=== PATIENT | female | born 1945 | race Caucasian/White ===

== ENCOUNTER → 2020-02-20 09:17 | Outpatient (BNVA) | payer MEDICARE, SELFPAY | PROVIDERS: PCP Internal Medicine; Referring Provider Internal Medicine; Visit Provider Orthopaedic Surgery | DX: M17.12 Unilateral primary osteoarthritis, left knee (principal); E78.5 Hyperlipidemia, unspecified; A69.20 Lyme disease, unspecified; Z88.8 Allergy status to other drugs, medicaments and biological substances | CPT/HCPCS: 99212 ==

== ENCOUNTER → 2020-06-18 09:40 | Outpatient (BNVA) | payer MEDICARE, SELFPAY | PROVIDERS: PCP Internal Medicine; Visit Provider Orthopaedic Surgery ==

== ENCOUNTER → 2020-07-17 13:04 | Outpatient (BNVA) | payer MEDICARE, SELFPAY | PROVIDERS: PCP Internal Medicine; Visit Provider Physician Assistant | DX: M17.12 Unilateral primary osteoarthritis, left knee (principal) | CPT/HCPCS: 99212 ==

== ENCOUNTER 2020-07-22 07:42 | Inpatient (IN) | payer MEDICARE, SELFPAY ==
--- NOTE | 2020-06-18 11:03 | ECG_ITS ---
Test Reason : PREOP Blood Pressure : / mmHG Vent. Rate : 099 BPM Atrial Rate : 099 BPM P-R Int : 144 ms QRS Dur : 080 ms QT Int : 322 ms P-R-T Axes : 063 -15 044 degrees QTc Int : 413 ms Normal sinus rhythm Normal ECG No previous ECGs available Referred By: Dylan Velazquez Electronically Signed By:ROSITA ENG
[2020-06-18 12:05] LABS: MANUAL DIFF FLAG NO
[2020-06-18 12:15] LABS: Basophils Percent Auto 0.2 % (0-2); Eosinophils Absolute Auto 0.1 X10*3/uL (0.0-0.4); Eosinophils Percent Auto 1.6 % (0-4); Hematocrit 38.8 % (37-47); Hemoglobin 12.7 g/dl (12.0-16.0); Imm Gran Abs Auto 0.02 X10*3/uL (0.00-0.03); Imm Gran Pct Auto 0.3 % (0.0-0.4); Lymphocytes Absolute Auto 1.1 X10*3/uL (1.2-4.9); Mean Corpuscular HGB Conc 32.7 g/dl (31.0-35.0); Mean Corpuscular Hemoglobin 28.9 pg (27.0-33.0); Mean Corpuscular Volume 88.4 fL (80-98); Mean Platelet Volume 12.3 fL (9.4-12.3); Monocytes Absolute Auto 0.5 X10*3/uL (0.1-1.2); Monocytes Percent Auto 8.5 % (2-11); Neutrophils Absolute Auto 4.4 X10*3/uL (2.0-8.3); Neutrophils Percent Auto 71.4 % (45-73); Platelet Count 144 X10*3/uL (160-400); Red Blood Count 4.39 X10*6/uL (4.20-5.50); Red Cell Distribution Width 14.2 % (11.0-16.0); White Blood Count 6.1 X10*3/uL (4.8-10.8)
[2020-06-18 12:29] LABS: Estimated Average Glucose 157 mg/dL; Hemoglobin A1c % 7.1 %
[2020-06-18 12:34] LABS: Anion Gap 14 (12-20); Blood Urea Nitrogen 23 mg/dL (9-16); Calcium 9.8 mg/dL (8.4-10.2); Carbon Dioxide 28 mmol/L (22-29); Chloride 103 mmol/L (96-108); Estimated Glomerular Filt Rate 58; Glucose Random 155 mg/dL (60-115); Magnesium 1.7 mg/dL (1.6-2.6); Potassium 3.8 mmol/L (3.3-5.1); Sodium 141 mmol/L (135-145)
[2020-07-15 11:53] VITALS: BP 181/76; PULSE 98; RESP 16; O2SAT 100; BMI 22.6
--- NOTE | 2020-07-15 12:11 | HO.ANESPROP2 ---
Documented by User: Leilani Cashney 07/19/20 07:47 HPI - Anesthesia Eval Consult details Narrative: 74yo for Left TKA Chronic hypomag r/t Gitelman syndrome - renal recommends recheck DOS, usually replaced IV if <1.6. Last Mag 2.0 on 07/15 PCP Cleared Renal cleared BP up at PAT. Pt states nerves/white coat syndrome/pain PMFSH Active Problems Active Problems: All Active Problems (Updated 07/12/20 @ 10:29 by Ligia Perdue) Hypomagnesemia (Acute) Past Medical History Medical History Cyst of pancreas Diabetes mellitus Gitelman syndrome Hyperlipidemia Hypertension Hypokalemia Hypomagnesemia Lyme disease Primary osteoarthritis of left knee Steatosis of liver Family History Family history of problems with anesthesia: No Surgical History Surgical History History of bilateral cataract extraction History of hysterectomy Hx of bilateral breast biopsy History of Problems with Anesthesia: No Social History Social History Are you a primary transitional care liaison to a significant other at home: No Do you presently have visiting nurse or other home services: No Smoking Status: Never smoker Use of substances other than those prescribed or required for medical reasons: No Have you been hit, kicked, punched, or otherwise hurt by someone within the past year? If so, by whom?: No Advance Directives: No Advance Directives Information Provided: No Advance Directives on File: No Recently lost weight without trying: No Current occupational status: retired Current occupation: Right Handed Narrative Narrative: No recent illness. Activity limited to pain. Meds Allergies Allergy/AdvReac Type Severity Reaction Status Date / Time simvastatin Allergy Unknown GI upset Verified 07/12/20 09:39 rosuvastatin [From CRESTOR] AdvReac Unknown GI UPSET Verified 07/12/20 09:39 Home Medications Medication Instructions Recorded Confirmed Last Taken Type glipizide 10 mg tablet 10 mg PO DAILY 02/19/20 07/12/20 Unknown History pravastatin 40 mg tablet 40 mg PO DAILY 02/19/20 07/12/20 Unknown History amiloride 5 mg tablet 5 mg PO DAILY 06/18/20 07/15/20 Unknown History magnesium chloride 71.5 mg 143 mg PO BID tab 06/18/20 07/12/20 Unknown History (magnesium chloride) tablet,delayed release pioglitazone 30 mg tablet 30 mg PO DAILY 06/18/20 07/12/20 Unknown History potassium chloride 20 mEq 20 meq PO BID 06/18/20 07/22/20 07/22/20 07:00 History tablet,extended release acetaminophen [Tylenol Extra 1,000 mg PO BID 07/12/20 07/12/20 Unknown History Strength] aspirin [Aspir-81] 81 mg PO DAILY 07/12/20 07/12/20 06/23/20 History Exam Exam Date and Time: July 15, 2020 1211 Height,Weight and Vital Signs: Height 5 ft Weight 52.617 kg Last Vital Signs Pulse 98 07/15/20 11:53 Resp 16 07/15/20 11:53 BP 181/76 H 07/15/20 11:53 Pulse Ox 100 07/15/20 11:53 Pertinent Lab Results Pertinent Lab Results: Laboratory Tests 06/18/20 06/18/20 06/18/20 11:12 11:12 11:12 WBC 6.1 RBC 4.39 Hgb 12.7 Hct 38.8 MCV 88.4 MCH 28.9 MCHC 32.7 RDW 14.2 Plt Count 144 L MPV 12.3 Immature Gran % (Auto) 0.3 Neut % (Auto) 71.4 Lymph % (Auto) 18.0 L [place] % (Auto) 8.5 Eos % (Auto) 1.6 Baso % (Auto) 0.2 Lymph # (Auto) 1.1 L [place] # (Auto) 0.5 Eos # (Auto) 0.1 Baso # (Auto) 0.0 Abs Immat Gran (auto) 0.02 Absolute Neuts (auto) 4.4 Absolute Nucleated RBC 0.000 Nucleated RBC % (auto) 0.0 Sodium 141 Potassium 3.8 Chloride 103 Carbon Dioxide 28 Anion Gap 14 BUN 23 H Creatinine 0.95 Estim Creat Clear Calc TNP Estimated GFR 58 Random Glucose 155 H Estimat Average Glucose 157 Hemoglobin A1c % 7.1 Calcium 9.8 Magnesium 1.7 Narrative Narrative: EKG 06/2020 NSR @ 99 Airway Mallampati Class: II TM Dist: >3cm Neck ROM: Full Loose/Missing/Broken Teeth: No Heart: RRR Lungs: CTAB Assessment and Plan Assessment Anesthesia Assessment: Anesthesia Plan Discussed and PAT Visit Documented by User: Luis Corral MD 07/22/20 11:26 [facility] Past Medical History Medical History Cyst of pancreas Diabetes mellitus Gitelman syndrome Hyperlipidemia Hypertension Hypokalemia Hypomagnesemia Lyme disease Primary osteoarthritis of left knee Steatosis of liver Surgical History Surgical History History of bilateral cataract extraction History of hysterectomy Hx of bilateral breast biopsy Social History Social History Are you a primary transitional care liaison to a significant other at home: No Do you presently have visiting nurse or other home services: No Smoking Status: Never smoker Use of substances other than those prescribed or required for medical reasons: No Have you been hit, kicked, punched, or otherwise hurt by someone within the past year? If so, by whom?: No Advance Directives: No Advance Directives Information Provided: No Advance Directives on File: No Recently lost weight without trying: No Current occupational status: retired Current occupation: Right Handed Meds Allergies Allergy/AdvReac Type Severity Reaction Status Date / Time simvastatin Allergy Unknown GI upset Verified 07/12/20 09:39 rosuvastatin [From CRESTOR] AdvReac Unknown GI UPSET Verified 07/12/20 09:39 Home Medications Medication Instructions Recorded Confirmed Last Taken Type glipizide 10 mg tablet 10 mg PO DAILY 02/19/20 07/12/20 Unknown History pravastatin 40 mg tablet 40 mg PO DAILY 02/19/20 07/12/20 Unknown History amiloride 5 mg tablet 5 mg PO DAILY 06/18/20 07/15/20 Unknown History magnesium chloride 71.5 mg 143 mg PO BID tab 06/18/20 07/12/20 Unknown History (magnesium chloride) tablet,delayed release pioglitazone 30 mg tablet 30 mg PO DAILY 06/18/20 07/12/20 Unknown History potassium chloride 20 mEq 20 meq PO BID 06/18/20 07/22/20 07/22/20 07:00 History tablet,extended release acetaminophen [Tylenol Extra 1,000 mg PO BID 07/12/20 07/12/20 Unknown History Strength] aspirin [Aspir-81] 81 mg PO DAILY 07/12/20 07/12/20 06/23/20 History Assessment and Plan Assessment Anesthesia Assessment: Anesthesia Plan Discussed, PAT Visit and Chart Reviewed Final Anesthetic Review NPO: Yes ASA Class: II Final Preanesthetic Review: No Changes in Pt Med Stat, Meds/Allgs Chart Reviewed, Consent Obtained/Reviewed and Anes Risks/Benef Reviewed Patient Risk: Intermediate Procedure Risk: Intermediate Anesthetic Plan Anesthetic Plan: MAC:, Spinal and Regional Block Disposition: Standard PACU
[2020-07-15 14:00] LABS: Anion Gap 15 (12-20); Carbon Dioxide 26 mmol/L (22-29); Chloride 104 mmol/L (96-108); Potassium 4.8 mmol/L (3.3-5.1); Sodium 140 mmol/L (135-145)
[2020-07-16 10:15] LABS: MRSA Nasal PCR NEGATIVE (Negative); SA Nasal PCR NEGATIVE (Negative)
[2020-07-22] VITALS (18 sets, daily range): BP systolic 104–168; BP diastolic 38–64; PULSE 65–94; RESP 15–20; TEMP 36.3–37; O2SAT 94–100
--- NOTE | ~2020-07-22 | XR_ITS ---
EXAMINATION: XR KNEE, LEFT CLINICAL INFORMATION: Postop COMPARISON: Left knee x-rays May 02, 2019 TECHNIQUE: Two views of the left knee. FINDINGS: Patient is status post left total knee arthroplasty. Components are in expected orientation. No periprosthetic fracture identified. Expected subcutaneous emphysema noted. Skin aiyana present. XR/XR knee LT 2V IMPRESSION: Unremarkable left knee status post arthroplasty.
--- NOTE | 2020-07-22 07:34 | MHC.SHP ---
Pre-Procedural Eval Section A The patient is an INPATIENT: No Changes since office visit: No Cold of Flu in the past 2 weeks, No New Medical Problems, No Changes in Medication and No Patient answered all questions The History & Physical has been completed within 30 days and I have reviewed it.: Yes Section B Chief Complaint: left knee osteoarthritis Allergies: Allergies Allergy/AdvReac Type Severity Reaction Status Date / Time simvastatin Allergy Unknown GI upset Verified 07/12/20 09:39 rosuvastatin [From CRESTOR] AdvReac Unknown GI UPSET Verified 07/12/20 09:39 Plan I have reviewed the history and physical and performed a pertinent physical examination on my patient. No changes have occurred unless specified.
[2020-07-22] MEDS: Gabapentin 600 MG TABLET PO (08:07)
[2020-07-22 08:33] LABS: COVID-19 Test Negative (Negative); IDNOW Serial# 9DD0AD1C
[2020-07-22] MEDS: Lactated Ringers 1,000 ML 100 ML IVCONT ×3 (08:57→23:49)
[2020-07-22 09:00] LABS: Glucose, Whole Blood 148 mg/dL (60-115)
[2020-07-22 09:05] LABS: Anion Gap 13 (12-20); Carbon Dioxide 28 mmol/L (22-29); Chloride 103 mmol/L (96-108); Magnesium 1.8 mg/dL (1.6-2.6); Potassium 4.4 mmol/L (3.3-5.1); Sodium 140 mmol/L (135-145)
[2020-07-22] MEDS: Acetaminophen 325 MG TABLET 650 MG PO ×3 (12:45→23:48)
[2020-07-22] MEDS: oxyCODONE HCl Immed Release 5 MG TABLET PO (12:46)
[2020-07-22] MEDS: ceFAZolin Sodium/Dextrose,Iso 2 GM/50 ML PIGGYBACK IV (15:35)
[2020-07-22] MEDS: ondansetron HCL 4 MG/2 ML VIAL IVPUSH (16:12)
[2020-07-22] MEDS: HYDROmorphone HCl 0.5 MG/0.5 ML SYRINGE 0.25 MG IVPUSH ×2 (16:55→17:00)
--- NOTE | 2020-07-22 17:39 | PM.IMCN ---
History of Present Illness Data of Consult Service Date: 07/22/20 Requesting physician: Dylan Velazquez Primary Care Provider: Tank Sam MD HPI Reason for consult: lissette 74F admitted for elective left knee replacement. Patient states that she has been having progressive left knee pain from her osteoarthritis. Is been getting worse to the point where she cannot walk. She had seen Dr. Velazquez who recommended elective total knee replacement. This was performed today, 07/22/2020. Surgery was unremarkable. Patient is feeling well. Denies any chest pain, shortness of breath, fever, chills. Medicine consult requested for management of medical problems including diabetes, gitelmans Review of Systems Review of Systems: Constitutional: Denies fever, denies Chills Eyes: denies blurry vision ENT: denies sore throat CVS: denies chest pain Respiratory: Denies dyspnea GI: no abdominal pain : denies dysuria MSK: denies neck pain Skin: denies rash Neuro: denies specific motor weakness Psych: denies suicidal ideation Endocrine: denies heat/cold intoleratnce Hematologic: denies easy bleeding Allergy: denies hives [facility] Medical History Cyst of pancreas Diabetes mellitus Gitelman syndrome Hyperlipidemia Hypertension Hypokalemia Hypomagnesemia Lyme disease Primary osteoarthritis of left knee Steatosis of liver Family history: reviewed and not pertinent Surgical History History of bilateral cataract extraction History of hysterectomy Hx of bilateral breast biopsy Social History Are you a primary critical care physician to a significant other at home: No Do you presently have visiting nurse or other home services: No Smoking Status: Never smoker Use of substances other than those prescribed or required for medical reasons: No Have you been hit, kicked, punched, or otherwise hurt by someone within the past year? If so, by whom?: No Advance Directives: No Advance Directives Information Provided: No Advance Directives on File: No Recently lost weight without trying: No Current occupational status: retired Current occupation: Right Handed Meds Allergies Allergy/AdvReac Type Severity Reaction Status Date / Time simvastatin Allergy Unknown GI upset Verified 07/12/20 09:39 rosuvastatin [From CRESTOR] AdvReac Unknown GI UPSET Verified 07/12/20 09:39 Active Medications: Current Medications Generic Name Dose Route Start Last Admin Trade Name Fresylvester PRN Reason Stop Dose Admin Acetaminophen 650 mg 07/22/20 16:54 Acetaminophen 325 Mg Tablet PO Q6H [facility] Aspirin 325 mg 07/23/20 22:00 Aspirin 325 Mg Tablet PO BID [facility] Lactated Ringer's 1,000 mls @ 100 mls/hr 07/22/20 07:45 07/22/20 14:49 Lr IVCONT 100 mls/hr .Q10H [facility] Administration Insulin Human Lispro 0 unit 07/22/20 21:00 Insulin Lispro 100 Unit/Ml 3 Ml Vial SUBCUT QIDACHS [facility] Protocol Ketorolac Tromethamine 15 mg 07/22/20 17:03 Ketorolac Tromethamine 15 Mg/Ml Vial IVPUSH Q6H [facility] Morphine Sulfate 2 mg 07/22/20 17:03 Morphine Sulfate 2 Mg/Ml Cartridge IVPUSH Q2H PRN Pain, Severe (Pain Scale 7-10) Naloxone HCl 0.2 mg 07/22/20 17:03 Naloxone Hcl 0.4 Mg/Ml Vial IVPUSH Q2M PRN Excessive sedation or RR < 8 Non-Formulary Medication 5 mg 07/23/20 09:00 Amiloride PO DAILY [facility] Non-Formulary Medication 143 mg 07/22/20 21:00 Magnesium Chloride [Slow-Mag] PO BID [facility] Ondansetron HCl 4 mg 07/22/20 17:03 Ondansetron Hcl 4 Mg/2 Ml Vial IVPUSH Q8H PRN Nausea and Vomiting Oxycodone HCl 10 mg 07/22/20 17:03 Oxycodone Hcl Immed Release 5 Mg Tablet PO Q4H [facility] Potassium Chloride 20 meq 07/22/20 21:00 Potassium Chloride Er 20 Meq Tab.Er.Prt PO BID [facility] Sodium Chloride 3 ml 07/22/20 17:03 0.9 % Sodium Chloride Flush 3 Ml Syringe IVFLUSH QSHIFT [facility] Sodium Chloride 3 ml 07/22/20 17:03 0.9 % Sodium Chloride Flush 3 Ml Syringe IVFLUSH QSHIFT [facility] Home Medications Medication Instructions Recorded Confirmed Last Taken Type glipizide 10 mg tablet 10 mg PO DAILY 02/19/20 07/12/20 Unknown History pravastatin 40 mg tablet 40 mg PO DAILY 02/19/20 07/12/20 Unknown History amiloride 5 mg tablet 5 mg PO DAILY 06/18/20 07/15/20 Unknown History magnesium chloride 71.5 mg 143 mg PO BID tab 06/18/20 07/12/20 Unknown History (magnesium chloride) tablet,delayed release pioglitazone 30 mg tablet 30 mg PO DAILY 06/18/20 07/12/20 Unknown History potassium chloride 20 mEq 20 meq PO BID 06/18/20 07/22/20 07/22/20 07:00 History tablet,extended release acetaminophen [Tylenol Extra 1,000 mg PO BID 07/12/20 07/12/20 Unknown History Strength] aspirin [Aspir-81] 81 mg PO DAILY 07/12/20 07/12/20 06/23/20 History Physical Exam Vital Signs and Narrative: Vital Signs: Last Vital Signs Temp 97.4 F 07/22/20 15:45 Pulse 80 07/22/20 17:20 Resp 16 07/22/20 17:20 BP 118/46 L 07/22/20 17:20 Pulse Ox 96 07/22/20 17:20 Body Mass Index 22.6 General: no acute distress HEENT: atraumatic Neck: normal to visual inspection CVS: S1, S2, RRR Resp: CTA bilateral Chest: non tender GI: soft, non tender, non distended : no CVA tenderness Skin: no rashes Extremities: no edema Neuro: Oriented X3, grossly intact Psych: cooperative Results Labs CBC and Chem 7: 06/18/20 11:12 07/22/20 08:10 Labs: Laboratory Results - last 24 hr 07/22/20 07/22/20 07/22/20 08:01 08:10 08:53 Anion Gap 13 POC Glucose 148 H Magnesium 1.8 COVID-19 ([facility]) Negative COVID-19 Clin Com See Note Assessment and Plan (1) Osteoarthritis of left knee: Status: Acute 74F presented status post elective left total knee replacement. Left total knee replacement Management per Orthopedics Gitelman syndrome Continue magnesium and potassium supplements along with amiloride Monitor BMP and magnesium Diabetes Hold orals Insulin sliding scale
[2020-07-22] MEDS: oxyCODONE HCl Immed Release 5 MG TABLET 10 MG PO ×2 (17:58→20:49)
[2020-07-22] MEDS: Ketorolac Tromethamine 15 MG/ML VIAL IVPUSH ×2 (17:58→23:47)
[2020-07-22 19:05] LABS: Glucose, Whole Blood 146 mg/dL (60-115)
[2020-07-22 20:25] LABS: Glucose, Whole Blood 201 mg/dL (60-115)
[2020-07-22] MEDS: Potassium Chloride ER 20 MEQ TAB.ER.PRT PO (20:50)
[2020-07-22] MEDS: Insulin Lispro 100 UNIT/ML 3 ML VIAL SUBCUT (20:54)
[2020-07-23] VITALS (7 sets, daily range): BP systolic 108–138; BP diastolic 38–57; PULSE 64–106; RESP 14–19; TEMP 36.2–37.2; O2SAT 93–98
[2020-07-23] MEDS: oxyCODONE HCl Immed Release 5 MG TABLET 10 MG PO ×4 (01:58→18:18)
[2020-07-23] MEDS: Acetaminophen 325 MG TABLET 650 MG PO ×4 (05:42→22:57)
[2020-07-23] MEDS: Ketorolac Tromethamine 15 MG/ML VIAL IVPUSH ×4 (05:43→22:58)
[2020-07-23 06:38] LABS: MANUAL DIFF FLAG NO
[2020-07-23 06:57] LABS: Eosinophils Percent Auto 0.2 % (0-4); Hematocrit 30.8 % (37-47); Hemoglobin 9.9 g/dl (12.0-16.0); Imm Gran Abs Auto 0.03 X10*3/uL (0.00-0.03); Imm Gran Pct Auto 0.5 % (0.0-0.4); Lymphocytes Absolute Auto 1.2 X10*3/uL (1.2-4.9); Lymphocytes Percent Auto 20.6 % (20-40); Mean Corpuscular HGB Conc 32.1 g/dl (31.0-35.0); Mean Corpuscular Hemoglobin 29.6 pg (27.0-33.0); Mean Corpuscular Volume 91.9 fL (80-98); Mean Platelet Volume 11.7 fL (9.4-12.3); Monocytes Absolute Auto 0.8 X10*3/uL (0.1-1.2); Monocytes Percent Auto 12.6 % (2-11); Neutrophils Percent Auto 66.1 % (45-73); Platelet Count 103 X10*3/uL (160-400); Red Blood Count 3.35 X10*6/uL (4.20-5.50); Red Cell Distribution Width 14.8 % (11.0-16.0)
[2020-07-23 07:12] LABS: Anion Gap 13 (12-20); Blood Urea Nitrogen 23 mg/dL (9-16); Calcium 8.7 mg/dL (8.4-10.2); Carbon Dioxide 26 mmol/L (22-29); Chloride 105 mmol/L (96-108); Creatinine Clr Calc Pharmacy 35.4; Estimated Glomerular Filt Rate 54; Glucose Fasting 128 mg/dL (60-99); Magnesium 1.7 mg/dL (1.6-2.6); Potassium 4.3 mmol/L (3.3-5.1); Sodium 140 mmol/L (135-145)
--- NOTE | 2020-07-23 07:39 | PM.PNORT ---
Subjective Subjective Date of Service: 07/23/20 Interval history: poD1 s/p left TKA. Pain is well managed. No overnight events. No additional complaints. Physical Exam Vital Signs: Vital Signs: Last Vital Signs Temp 98.4 F 07/23/20 07:20 Pulse 64 07/23/20 07:20 Resp 18 07/23/20 07:20 BP 111/41 L 07/23/20 07:20 Pulse Ox 93 07/23/20 07:20 Body Mass Index 22.6 Const: General: cooperative, healthy appearing and no acute distress Resp: Effort & Inspection: normal respiratory effort and able to speak in complete sentences Cardio: Rate: regular rate Peripheral pulses: Peripheral pulses 2+ throughout GI: Palpation (GI): Soft to palpation Skin: Lesions: no lesions Rashes: no rashes Extrem: Other: Right knee no ecchymosis, redness, or drainage. Aquacel is clean, dry, and intact. NVI. Progress Note: A&P Assessment and plan (1) Status post total knee replacement, left: Status: Acute Assessment and Plan: Continue pain mgmnt Continue ASA for dvt ppx Continue PT for LTka Dispo planning-Pending PT eval, pain mgmnt Fall Risk Details Current Medications: Current Medications Generic Name Dose Route Start Last Admin Trade Name Freq PRN Reason Stop Dose Admin Acetaminophen 650 mg 07/22/20 16:54 07/23/20 05:42 Acetaminophen 325 Mg Tablet PO 650 mg Q6H [facility] Administration Aspirin 325 mg 07/23/20 22:00 Aspirin 325 Mg Tablet PO BID [facility] Insulin Human Lispro 0 unit 07/22/20 21:00 07/22/20 20:54 Insulin Lispro 100 Unit/Ml 3 Ml Vial SUBCUT 4 unit QIDACHS [facility] Administration Protocol Ketorolac Tromethamine 15 mg 07/22/20 17:03 07/23/20 05:43 Ketorolac Tromethamine 15 Mg/Ml Vial IVPUSH 15 mg Q6H [facility] Administration Morphine Sulfate 2 mg 07/22/20 17:03 Morphine Sulfate 2 Mg/Ml Cartridge IVPUSH Q2H PRN Pain, Severe (Pain Scale 7-10) Naloxone HCl 0.2 mg 07/22/20 17:03 Naloxone Hcl 0.4 Mg/Ml Vial IVPUSH Q2M PRN Excessive sedation or RR < 8 Non-Formulary Medication 5 mg 07/23/20 09:00 Amiloride PO DAILY [facility] Non-Formulary Medication 143 mg 07/22/20 21:00 Magnesium Chloride [Slow-Mag] PO BID [facility] Ondansetron HCl 4 mg 07/22/20 17:03 Ondansetron Hcl 4 Mg/2 Ml Vial IVPUSH Q8H PRN Nausea and Vomiting Oxycodone HCl 10 mg 07/22/20 17:03 07/23/20 05:43 Oxycodone Hcl Immed Release 5 Mg Tablet PO 10 mg Q4H [facility] Administration Potassium Chloride 20 meq 07/22/20 21:00 07/22/20 20:50 Potassium Chloride Er 20 Meq Tab.Er.Prt PO 20 meq BID [facility] Administration Sodium Chloride 3 ml 07/22/20 17:03 07/23/20 00:26 0.9 % Sodium Chloride Flush 3 Ml Syringe IVFLUSH Not Given QSHIFT [facility] Sodium Chloride 3 ml 07/22/20 17:03 07/23/20 00:26 0.9 % Sodium Chloride Flush 3 Ml Syringe IVFLUSH Not Given QSHIFT [facility] Time Spent With Patient Time: Total time spent is greater than 50% in coordination of care (as documented) at patient's floor/unit and/or counseling patient: Time with patient: less than 15 minutes
[2020-07-23 07:46] LABS: Glucose, Whole Blood 132 mg/dL (60-115)
[2020-07-23] MEDS: Potassium Chloride ER 20 MEQ TAB.ER.PRT PO ×2 (08:10→21:28)
--- NOTE | 2020-07-23 10:21 | MHC.CM.PN ---
IMM 07/23/20, EMR REVIEWED, PT ADMITTED S/P LEFT TKA, CM MET W/PT WHO IS ALERT & ORIENTED AND REPORTS PRIOR TO KNEE ISSUES PT WAS INDEPENDENT AND WALKED ALMOST EVERY DAY W/, PT REPORTS SHE HAS A FRONT WHEELED WALKER, TOILET RAISER, SHOWER CHAIR AND BARS IN BATHROOM, PT HAS NO HOME SERVICES AND REPORTS SHE HAS NO PREFERENCE IN [facility]. PT WOULD LIKE TO D/C SOON POSSIBLE, PT VERIFIES PCP AND HCP. DISCHARGE PLAN: HOME W/[facility] FOR SN AND HOME PT, [facility] TRANSPORT PCP: CARLOS FUENTES HCP: YANIV PETERS ([facility]) [phone]
--- NOTE | 2020-07-23 10:21 | HO.PM.IMPN ---
Subjective Subjective Date of Service: 07/23/20 Interval History: nausea, pain better controlled Cardiovascular Cardiovascular: Reports no additional cardiovascular complaints Gastrointestinal Gastrointestinal: Reports no additional gastrointestinal complaints Physical Exam Vital Signs: Vital Signs: Last Vital Signs Temp 98.4 F 07/23/20 07:20 Pulse 64 07/23/20 07:20 Resp 18 07/23/20 07:20 BP 111/41 L 07/23/20 07:20 Pulse Ox 93 07/23/20 07:20 Body Mass Index 22.6 Const General: cooperative, healthy appearing and no acute distress Resp Effort & Inspection: normal respiratory effort and able to speak in complete sentences Cardio Rate: regular rate Peripheral pulses: Peripheral pulses 2+ throughout GI Palpation (GI): Soft to palpation Skin Lesions: no lesions Rashes: no rashes Extrem Other: Right knee no ecchymosis, redness, or drainage. Aquacel is clean, dry, and intact. NVI. Objective Data Current Medications Generic Name Dose Route Start Last Admin Trade Name Freq PRN Reason Stop Dose Admin Acetaminophen 650 mg 07/22/20 16:54 07/23/20 05:42 Acetaminophen 325 Mg Tablet PO 650 mg Q6H [facility] Administration Aspirin 325 mg 07/23/20 22:00 Aspirin 325 Mg Tablet PO BID [facility] Insulin Human Lispro 0 unit 07/22/20 21:00 07/23/20 07:48 Insulin Lispro 100 Unit/Ml 3 Ml Vial SUBCUT Not Given QIDACHS [facility] Protocol Ketorolac Tromethamine 15 mg 07/22/20 17:03 07/23/20 05:43 Ketorolac Tromethamine 15 Mg/Ml Vial IVPUSH 15 mg Q6H [facility] Administration Morphine Sulfate 2 mg 07/22/20 17:03 Morphine Sulfate 2 Mg/Ml Cartridge IVPUSH Q2H PRN Pain, Severe (Pain Scale 7-10) Naloxone HCl 0.2 mg 07/22/20 17:03 Naloxone Hcl 0.4 Mg/Ml Vial IVPUSH Q2M PRN Excessive sedation or RR < 8 Non-Formulary Medication 5 mg 07/23/20 09:00 Amiloride PO DAILY [facility] Non-Formulary Medication 143 mg 07/22/20 21:00 Magnesium Chloride [Slow-Mag] PO BID [facility] Ondansetron HCl 4 mg 07/22/20 17:03 Ondansetron Hcl 4 Mg/2 Ml Vial IVPUSH Q8H PRN Nausea and Vomiting Oxycodone HCl 10 mg 07/22/20 17:03 07/23/20 08:11 Oxycodone Hcl Immed Release 5 Mg Tablet PO Not Given Q4H [facility] Potassium Chloride 20 meq 07/22/20 21:00 07/23/20 08:10 Potassium Chloride Er 20 Meq Tab.Er.Prt PO 20 meq BID [facility] Administration Sodium Chloride 3 ml 07/22/20 17:03 07/23/20 07:48 0.9 % Sodium Chloride Flush 3 Ml Syringe IVFLUSH Not Given QSHIFT [facility] Sodium Chloride 3 ml 07/22/20 17:03 07/23/20 07:48 0.9 % Sodium Chloride Flush 3 Ml Syringe IVFLUSH Not Given QSHIFT [facility] Labs CBC & Chem 7: 07/23/20 06:13 07/23/20 06:13 Assessment and Plan (1) Osteoarthritis of left knee: Status: Acute (2) Gitelman syndrome: Problem details: Followed by Dr Talon [facility]; Dr Bebeto Warner- [facility] Status: Acute (3) Diabetes mellitus: Status: Acute Assessment and Plan: 74F presented status post elective left total knee replacement. Left total knee replacement Management per Orthopedics Gitelman syndrome Continue magnesium and potassium supplements along with amiloride k and mg stable Diabetes Hold orals while inpatient Insulin sliding scale
[2020-07-23 11:41] LABS: Glucose, Whole Blood 209 mg/dL (60-115)
[2020-07-23] MEDS: Insulin Lispro 100 UNIT/ML 3 ML VIAL SUBCUT (12:42)
[2020-07-23] MEDS: 0.9 % Sodium Chloride Flush 3 ML SYRINGE IVFLUSH ×3 (12:43→21:28)
--- NOTE | 2020-07-23 14:03 | HO.POSTANES ---
Post Anesthesia Evaluation Post Anesthesia Evaluation Vital Signs: Vital Signs Temp Pulse Resp BP Pulse Ox 07/23/20 11:24 98.1 F 77 18 132/50 L 94 07/23/20 07:20 98.4 F 64 18 111/41 L 93 07/23/20 03:57 97.3 F 92 19 122/57 L 97 Anesthesia: Spinal Mental Status: Awake Pain Control: Satisfactory Nausea/Vomiting: None Hydration: Adequate Anesthesia-Related Issues: No Anes. Related Issues
--- NOTE | 2020-07-23 14:10 | MHC.CM.PN ---
PT WILL DISCHARGE TODAY 07/23/20 WITH [facility] FOR PENITENTIARY, HOME PT AND A SCRIPT FOR A FRONT WHEELED WALKER, PT'S TO TRANSPORT.
--- NOTE | 2020-07-23 15:02 | PM.DS ---
DS: Providers Provider Date of Service: 07/23/20 Date of admission: 07/22/20 07:42 Primary care physician: Tank Sam MD Consults: 07/22/20 17:03 Consult to Hospitalist Routine Consulting Provider: Hospitalist Reason For Exam: medical issues DS: Diagnosis Discharge Diagnosis (1) Osteoarthritis of left knee: Status: Acute Problem details: Ms. Mercer is a 74 yo female who presented to the office with ongoing left knee pain. She was found to have OA of the left knee and had failed all conservative treatment. She continued to have difficulty with ambulation and daily activities; therefore she consented to move forward with left total knee arthroplasty. DS: Medications Discharge Medications Home Medications: Home Medications Medication Instructions Recorded Confirmed glipizide 10 mg tablet 10 mg PO DAILY 02/19/20 07/12/20 pravastatin 40 mg tablet 40 mg PO DAILY 02/19/20 07/12/20 amiloride 5 mg tablet 5 mg PO DAILY 06/18/20 07/15/20 magnesium chloride 71.5 mg 143 mg PO BID tab 06/18/20 07/12/20 (magnesium chloride) tablet,delayed release pioglitazone 30 mg tablet 30 mg PO DAILY 06/18/20 07/12/20 potassium chloride 20 mEq 20 meq PO BID 06/18/20 07/22/20 tablet,extended release acetaminophen [Tylenol Extra 1,000 mg PO BID 07/12/20 07/12/20 Strength] aspirin [Aspir-81] 81 mg PO DAILY 07/12/20 07/12/20 Previous Rx's Medication Instructions Recorded oxycodone 10 mg PO Q6H 7 Days #56 tab 07/23/20 walker #1 ea 07/23/20 DS: Summary Time Spent with Patient Time attestation: Total time spent providing and/or coordinating discharge services: Discharge coordination time: Less than 30 minutes Physical Exam Vital Signs: Vital Signs: Last Vital Signs Temp 98.1 F 07/23/20 11:24 Pulse 77 07/23/20 11:24 Resp 18 07/23/20 11:24 BP 132/50 L 07/23/20 11:24 Pulse Ox 94 07/23/20 11:24 Body Mass Index 22.6 Const: General: cooperative, healthy appearing and no acute distress Resp: Effort & Inspection: normal respiratory effort and able to speak in complete sentences Cardio: Rate: regular rate Peripheral pulses: Peripheral pulses 2+ throughout GI: Palpation (GI): Soft to palpation Skin: Lesions: no lesions Rashes: no rashes Extrem: Other: Left knee no ecchymosis, redness, drainage. Aquacel dressing clean dry and intact. NVI. DS: Data Data Completed and Pending Pending studies at discharge: Pending at discharge 07/22/20 10:50 Surgical [PTH] Routine Labs on day of discharge: Laboratory Results - last 24 hr 07/22/20 07/22/20 07/23/20 18:06 20:17 06:13 WBC 6.0 RBC 3.35 L D Hgb 9.9 L D Hct 30.8 L D MCV 91.9 MCH 29.6 MCHC 32.1 RDW 14.8 Plt Count 103 L D MPV 11.7 Immature Gran % (Auto) 0.5 H Neut % (Auto) 66.1 Lymph % (Auto) 20.6 [place] % (Auto) 12.6 H Eos % (Auto) 0.2 Baso % (Auto) 0.0 Lymph # (Auto) 1.2 [place] # (Auto) 0.8 Eos # (Auto) 0.0 Baso # (Auto) 0.0 Abs Immat Gran (auto) 0.03 Absolute Neuts (auto) 4.0 Absolute Nucleated RBC 0.000 Nucleated RBC % (auto) 0.0 Sodium Potassium Chloride Carbon Dioxide Anion Gap BUN Creatinine Estim Creat Clear Calc Estimated GFR POC Glucose 146 H 201 H Fasting Glucose Calcium Magnesium 07/23/20 07/23/20 07/23/20 06:13 07:18 11:22 WBC RBC Hgb Hct MCV MCH MCHC RDW Plt Count MPV Immature Gran % (Auto) Neut % (Auto) Lymph % (Auto) [place] % (Auto) Eos % (Auto) Baso % (Auto) Lymph # (Auto) [place] # (Auto) Eos # (Auto) Baso # (Auto) Abs Immat Gran (auto) Absolute Neuts (auto) Absolute Nucleated RBC Nucleated RBC % (auto) Sodium 140 Potassium 4.3 Chloride 105 Carbon Dioxide 26 Anion Gap 13 BUN 23 H Creatinine 1.00 Estim Creat Clear Calc 35.4 Estimated GFR 54 POC Glucose 132 H 209 H Fasting Glucose 128 H Calcium 8.7 D Magnesium 1.7 Discharge Plan Discharge Patient Disposition: Home Health Service Referrals: [facility] [Outside] ([facility] PLEASE CALL ABOVE NUMBER IF YOU HAVE NOT HEARD FROM [facility] BY NOON ON 07/24/20) hSabana Briones PA-C [Physician Battery Tester And Repairer] - (08/07/20 at 11:15am ) Discharge Medications: New acetaminophen 325 mg Tablet 650 mg PO Q6H 30 Days Qty: 240 RF: 0 aspirin 325 mg Tablet 325 mg PO BID 14 Days Qty: 28 RF: 0 oxycodone 5 mg Tablet 10 mg PO Q6H 7 Days Qty: 56 RF: 0 docusate sodium [Colace] 100 mg capsule 100 mg PO BID 30 Days Qty: 60 RF: 0 (DME) walker Misc See Rx Instructions .ROUTE .MEDSUPPLY Qty: 1 RF: 0 Continued potassium chloride 20 mEq tablet extended release 20 meq PO BID RF: 0 Slow-Mag 71.5 mg tablet,delayed release (DR/EC) 143 mg PO BID RF: 0 pioglitazone [Actos] 30 mg tablet 30 mg PO DAILY RF: 0 amiloride 5 mg tablet 5 mg PO DAILY RF: 0 Discontinued aspirin [Aspir-81] 81 mg Tablet,Delayed Release (Dr/Ec) 81 mg PO DAILY RF: 0 acetaminophen [Tylenol Extra Strength] 500 mg Capsule 1,000 mg PO BID RF: 0 Discharge Orders: Discharge Order (Routine); Ordered 07/23/20 Ordered By: Shabana Briones Diet: diabetic diet Activity on Discharge: Use cane or walker Stand Alone Forms: Patient Portal Discharge page Care Plan Goals: Restore fxn of the left knee Health Concerns: none Plan of Treatment: Physical Therapy for ROM 0-120, quad strength, gait training. Use walker for ambulation Limit stair climbing, No shower, No tub bath, No driving Continue anticoagulant Keep Aquacel dressing clean, dry and intact. Follow up with orthopedics in 2 weeks
--- NOTE | 2020-07-23 15:04 | P.F2F_ITS ---
Service Date Service Date: 07/23/20 Encounter Date of encounter: 07/23/20 Encounter: Pt. is considered homebound due to recent surgery. Unable to drive, poor balance, poor gait mechanics. Reasons for Services Reason for physical therapy: home safety and mobility, therapeutic exercises, restore joint function, gait/transfer training and ADL training Reason for occupational therapy: home safety and mobility, therapeutic exercises, restore joint function, gait/transfer training and ADL training Homebound: Leaving the home is medically contraindicated at this time without the asist of a device and/or another person due th the listed conditions above and below. Reason homebound: unsteady gait / fall risk, leg weakness, pain with ambulation, pain with transfers, poor balance / fall risk and unable to drive Homebound supporting statement: Pt. is considered homebound due to recent surgery. Unable to drive, poor balance, poor gait mechanics. Certification: Based on the above findings, I certify that this patient is confined to the home and needs intermittent prison care, physical therapy and/or speech therapy, or continues to need occupational therapy. The patient is under my care, and I have initiated the establishment of the plan of care. The patient will be followed by a physician who will periodically review the plan of care.
[2020-07-23 16:25] LABS: Glucose, Whole Blood 116 mg/dL (60-115)
[2020-07-23] MEDS: ondansetron HCL 4 MG/2 ML VIAL IVPUSH (16:55)
--- NOTE | 2020-07-23 17:30 | PC.NURSE ---
Patient C/O 10/10 pain to left knee and nausea. Scheduled toradol, tylenol and 5mg oxycodone administered. PRN zofran administered. Crying, stating she does not want to be discharged tonight, patient would rather stay one more night. Orthopedic PA notified, awaiting discharge to be canceled.
[2020-07-23 20:55] LABS: Glucose, Whole Blood 186 mg/dL (60-115)
[2020-07-23] MEDS: Aspirin 325 MG TABLET PO (21:27)
[2020-07-24] MEDS: oxyCODONE HCl Immed Release 5 MG TABLET 10 MG PO (01:37)
[2020-07-24] MEDS: ondansetron HCL 4 MG/2 ML VIAL IVPUSH (01:38)
[2020-07-24 04:00] VITALS: BP 136/50; PULSE 93; RESP 18; TEMP 36.7
[2020-07-24] MEDS: Acetaminophen 325 MG TABLET 650 MG PO (04:59)
[2020-07-24] MEDS: Ketorolac Tromethamine 15 MG/ML VIAL IVPUSH (05:00)
[2020-07-24 07:18] VITALS: BP 151/54; PULSE 99; RESP 17; TEMP 36.6; O2SAT 97
[2020-07-24 07:29] LABS: Glucose, Whole Blood 149 mg/dL (60-115)
[2020-07-24 07:55] LABS: Basophils Percent Auto 0.2 % (0-2); Hemoglobin 9.6 g/dl (12.0-16.0); MANUAL DIFF FLAG SCAN; PLT CLUMP 1; Red Cell Distribution Width 14.6 % (11.0-16.0); SCAN SMEAR FLAG 1
[2020-07-24 07:56] LABS: Eosinophils Absolute Auto 0.1 X10*3/uL (0.0-0.4); Hematocrit 29.9 % (37-47); Imm Gran Abs Auto 0.03 X10*3/uL (0.00-0.03); Imm Gran Pct Auto 0.5 % (0.0-0.4); Lymphocytes Absolute Auto 1.1 X10*3/uL (1.2-4.9); Lymphocytes Percent Auto 17.4 % (20-40); Mean Corpuscular HGB Conc 32.1 g/dl (31.0-35.0); Mean Corpuscular Hemoglobin 29.5 pg (27.0-33.0); Mean Platelet Volume 11.1 fL (9.4-12.3); Monocytes Absolute Auto 0.7 X10*3/uL (0.1-1.2); Monocytes Percent Auto 10.7 % (2-11); Neutrophils Absolute Auto 4.4 X10*3/uL (2.0-8.3); Neutrophils Percent Auto 70.2 % (45-73); Red Blood Count 3.25 X10*6/uL (4.20-5.50); White Blood Count 6.3 X10*3/uL (4.8-10.8)
[2020-07-24 07:57] LABS: Platelet Count 99 X10*3/uL (160-400)
[2020-07-24 08:22] LABS: Anion Gap 13 (12-20); Blood Urea Nitrogen 22 mg/dL (9-16); Calcium 8.8 mg/dL (8.4-10.2); Carbon Dioxide 26 mmol/L (22-29); Chloride 104 mmol/L (96-108); Creatinine Clr Calc Pharmacy 34.1; Estimated Glomerular Filt Rate 52; Glucose Random 154 mg/dL (60-115); Potassium 4.3 mmol/L (3.3-5.1); Sodium 139 mmol/L (135-145)
[2020-07-24] MEDS: 0.9 % Sodium Chloride Flush 3 ML SYRINGE IVFLUSH (08:42)
[2020-07-24] MEDS: Aspirin 325 MG TABLET PO (08:42)
[2020-07-24 08:43] VITALS: BP 151/54; PULSE 99
[2020-07-24] MEDS: Spironolactone 25 MG TABLET PO (08:43)
[2020-07-24] MEDS: Potassium Chloride ER 20 MEQ TAB.ER.PRT PO (08:43)
--- NOTE | 2020-07-24 11:12 | HO.PM.IMPN ---
Subjective Subjective Date of Service: 07/24/20 Interval History: the patient was seen and evaluated this morning Laying in bed, feels comfortable Denies any fever, chills or shortness of breath Knee pain significantly improved but still bothering her No reported other overnight events. Systemic review: No fever, chills or weakness No chest pain, palpitation No shortness of breath or coughing No abdominal pain, nausea or vomiting No urinary symptoms No any rash or wounds Physical Exam Vital Signs: Vital Signs: Last Vital Signs Temp 97.8 F 07/24/20 07:18 Pulse 99 07/24/20 08:43 Resp 17 07/24/20 07:18 BP 151/54 H 07/24/20 08:43 Pulse Ox 97 07/24/20 07:18 Body Mass Index 22.6 Const: Other: Constitutional : Alert, oriented, not in distress Neck : Normal inspection, Supple Cardiovascular : RRR, S1 S2, no lower extremity edema Respiratory : Good bilateral air entry, no crackles, wheezes or rhonchi Gastrointestinal: soft, lax, Normal bowel sounds, Non tender Skin : Warm/Dry, No rash, left knee in dressing Neurological : Alert & oriented x3, No focal deficit Objective Data Labs CBC & Chem 7: 07/24/20 07:42 07/24/20 07:42 Assessment and Plan (1) Osteoarthritis of left knee: Problem details: Status: Acute (2) Gitelman syndrome: Status: Acute (3) Diabetes mellitus: Status: Acute Assessment and Plan: 74F presented status post elective left total knee replacement. Left total knee replacement pain under good control Management per Orthopedics Gitelman syndrome Continue magnesium and potassium supplements along with amiloride k and mg stable Diabetes Hold orals while inpatient Insulin sliding scale Plan to discharge home today continue physical therapy.
--- NOTE | 2020-07-26 08:11 | W.PM.OPN ---
Operative Note Operative Note Date of Service: 07/22/20 Narrative: SURGEON: Dr Dylan Alvarez) Marcus MUNOZ WEAVER TIRE CORD: Jude MONAHAN PREOP DIAGNOSIS: Osteoarthritis left knee POSTOP DIAGNOSIS: Same OPERATIVE PROCEDURE: Left Total knee arthroplasty -Ramon NextGen CR flex GSF size D left femur, 3 x 10 mm monoblock tibial component, 32 mm monoblock patellar component CLINICAL NOTE: This individual comes in today in regards to their knee. Has osteoarthritis. Has failed non operative management. Therefore after explaining the risks benefits and alternatives and answering all the questions it was mutually agreed upon care following procedure OPERATIVE DETAILS With of regional and spinal anesthetic the patient was placed supine on the operating table. Pneumatic tourniquet cuff was placed around the upper thigh and inflated to 300 mm of mercury at the beginning of the case. The leg was then prepped and draped in standard fashion with the leg free. Surgical time-out was then performed. The patient was identified. Procedure confirmed. Site confirmed. Medical and allergy history reviewed. Preoperative antibiotics were given. Standard DVT prophylaxis in place. Tranexamic acid was given as well. All other items were discussed and agreed upon. Standard small midline incision was made. Was taken down through the subcutaneous tissues. Hemostasis achieved along the way using electrocautery. This brought us to the extensor mechanism where a medial parapatellar arthrotomy in a subvastus technique was performed. The patella was retracted into the lateral gutter. The soft tissues were elevated from the anterior aspect of the femur. At the level of the tibia the soft tissue elevated medially excising a portion of the meniscus as well as protecting the medial-sided soft tissues. Similarly on the lateral side a portion of the fat pad, portion of the meniscus were excised. The lateral-sided soft tissues were elevated protecting them as well. The ACL was resected. We turned our attention then to the femur. Standard ex to medullary hole was established. The cutting guide was set for 5 degrees of valgus with a standard cut. It was held in place with pins and the surface resected flat. The sizing guide was then used. The femur was sized to a D. The 3 degree external rotation pins were set. The all in 1 cutting guide for this size was placed the pins and centered over the distal cut. Following this the anterior and anterior chamfer cuts, the posterior and posterior chamfer cuts, the patellar recess cuts, as well as the lug holes were made. The guide was removed. The bony fragments removed and we turned our attention to the tibia. The remainder of the medial and lateral menisci were excised. The extramedullary guide was then used in standard fashion referencing the tibial tubercle, the subcutaneous border of the tibia, and the middle of the ankle. The slope was then set. The cut was referenced from the more worn size for a minimal cut. The surface was then resected. The bony segment removed. The tibia was then trialed to a size 3. It was aligned as the extra medullary guide had been. A 10 mm trial insert was put into place. The femoral trial was also applied with good fit. The alignment of the leg was excellent. The knee was then placed through a range of motion which demonstrated full extension full flexion stable medially and laterally at 0, 30, 60, and 90 degrees of flexion. Patella tracked centrally. Turning our attention to the patella. The soft tissues were elevated circumferentially. The surface was resected flat. It sized to a 32 mm component. The trial component was put into place with excellent fit. It tracked nicely through flexion extension. Therefore the trial sizes were appropriate and therefore the permanent components were selected and brought up onto the table. The trial components were then all removed after the peg holes for the tibia were made. The tourniquet was then let down with total tourniquet time of 38 minutes. The area of the lateral geniculate artery was identified and cauterized. Any excessive bleeding points were also cauterized. The knee was then thoroughly irrigated. The permanent components were brought up onto the table. The tibia followed by the femur followed by the patella were all Press-Fit into place. At this point when the knee was placed through a full range of motion it was noted that there was quarter of the patella tendon insertion he also from the medial side. Though the majority was still intact elected to repair this. A suture anchors placed with 2 sutures which were then in horizontal mattress fashion tied down. The knee was placed through range of motion. It had full flexion and extension. He was stable medial laterally in all positions. Patella tracked centrally. And therefore we proceeded to closure. Wound was thoroughly irrigated. The extensor mechanism was closed with #2 Quill suture. The skin was approximated with 2-0 Polysorb suture. The skin was closed with aiyana. Sterile dressing was then applied. The patient was then transferred supine to the room bed and taken to the recovery room in good condition. Intraoperatively a 2nd unit a transit make acid was given at the time of closure. There was approximately 50 cc a blood loss. No intraop transfusions or complications other than what was noted above.
== END 2020-07-24 10:15 | disposition home health service (06) | DRG 470 ==
LOC: HO.SSSA 07:56 → HO.S3 16:39
PROVIDERS: Internal Medicine; Nurse Practitioner; Physician Assistant; Admitting Provider Orthopaedic Surgery; PCP Internal Medicine; Visit Provider Orthopaedic Surgery
PROC: 0SRD0JA Replacement of Left Knee Joint with Synthetic Substitute, Uncemented, Open Approach (ICD-10-PCS; CPT 27447; principal; 2020-07-22 10:10)
DX: M17.12 Unilateral primary osteoarthritis, left knee (principal); E78.5 Hyperlipidemia, unspecified; I10 Essential (primary) hypertension; E11.9 Type 2 diabetes mellitus without complications; N15.8 Other specified renal tubulo-interstitial diseases; Z20.822 Contact with and (suspected) exposure to COVID-19; Z79.899 Other long term (current) drug therapy
CPT/HCPCS: 36415; 73560; 80048; 80051; 82947; 83036; 83735; 85014; 85018; 85025; 86850; 86900; 87635; 87640; 87641; 88305; 88311; 93005; 97110; 97116; 97162; 97165; 97530; 97535; C1776; J0690; J1170; J1885; J2250; J2370; J2405

== ENCOUNTER → 2020-08-07 14:09 | Outpatient (BNVA) | payer MEDICARE, SELFPAY | PROVIDERS: Visit Provider Physician Assistant | DX: Z47.1 Aftercare following joint replacement surgery (principal); Z96.652 Presence of left artificial knee joint | CPT/HCPCS: 99212 ==

== ENCOUNTER → 2020-08-21 10:04 | Outpatient (BNVA) | payer MEDICARE, SELFPAY | PROVIDERS: PCP Internal Medicine; Visit Provider Physician Assistant | DX: Z47.1 Aftercare following joint replacement surgery (principal); Z96.652 Presence of left artificial knee joint | CPT/HCPCS: 99212 ==

== ENCOUNTER → 2020-09-06 10:00 | Outpatient (BNVA) | payer MEDICARE, SELFPAY | PROVIDERS: PCP Internal Medicine; Visit Provider Orthopaedic Surgery | DX: Z47.1 Aftercare following joint replacement surgery (principal); Z96.652 Presence of left artificial knee joint | CPT/HCPCS: 99212 ==

== ENCOUNTER → 2020-09-25 09:32 | Outpatient (BNVA) | payer MEDICARE, SELFPAY | PROVIDERS: Visit Provider Orthopaedic Surgery | DX: Z47.1 Aftercare following joint replacement surgery (principal); Z96.652 Presence of left artificial knee joint | CPT/HCPCS: 99212 ==

== ENCOUNTER → 2020-10-02 08:00 | Outpatient (RCR) | payer MEDICARE, SELFPAY ==
--- NOTE | 2020-08-09 12:05 | MHC.PT.EP ---
[facility] [place] [facility] [place] [facility] [place] [facility] [address] [place] [address] [phone] F: [phone] F: [phone] F: [phone] F: [phone] Physical Therapy Plan of Care Date of Evaluation: Date of Surgery: July 22 2020 Diagnosis: left TKA Assessment: Pt has reduced knee ROM on left side, bilateral decreased ankle DF ROM, decreased strength in her left knee. She has an altered gait pattern, reduced functional mobility, poor reactive strategies for balance, decreased ability for obstacle negotiation in the community. She is a good candidate for skilled PT to regain symmetrical ROM in ankle, knee, and increase strength in left hip, knee and ankle. Frequency and Duration: The patient will be seen 2x/week x 4 weeks Short Term Goals: 1. ability to negotiate a 2 inch step to show improved eccentric control. 2. Pt to be able to bend left knee past 90 degrees AROM. Device Sales Consultant Goals: 4 weeks - the patient will have no limiting pain in her knees during gait with community ambulation to show improved activity tolerance. 4 weeks - pt will have more quad control with TKE demonstrated by no medial collapse during a curb height step. 4 weeks -patient to be able to return to all functional movements and ADL's without limiting knee pain to show return to PLOF. Treatment Plan: Modalities to reduce pain, spasms and effusion. Manual therapy to restore motion and function. Therapeutic exercise to improve strength and flexibility. Neuromuscular re-education for posture and balance. Therapeutic activities to return to functional activities of daily living. Electronically signed by: Charla Morales PT DPT Please sign and return to therapist. Thank you for your referral.
--- NOTE | 2020-09-25 08:59 | MHC.PT.PR ---
[facility] [place] [facility] [place] [facility] [place] [facility] [address] [place] [address] [facility] [phone] F: [phone] F: [phone] F: [phone] F: [phone] Physical Therapy Progress Note Diagnosis: left TKA Date of Surgery: July 22 2020 Date of Evaluation: 08/09/20 Treatments to Date: 15 Cancellations to Date: 0 No Shows to Date: 0 Subjective: I am seeing Dr. Velazquez today. I suppose he will discharge him. Pain Score and Location: 3 L knee Objective Measures: 09/23/20 PROM 0--112 AROM 0-6-105 Assessment: Pt responded well to manual therapy today. Her measurements improved about 10 degrees with manual therapy. Pt needs cues for max effort and max performance. Once cued patient performs much better. Pt still feels significant tightness in her hamstrings and calf muscles. AROM 0-6-105. PROM 0-112. PT Plan: Frequency and Duration: The patient will be seen 2x/week x 4 weeks Treatment Plan: Therapeutic Exercise Dynamic Therapeutic Activities Neuromuscular Re-ed Manual Therapies Joint Mobilization Taping Gait Home Exercise Program Patient Education Hot or Cold Pack TKA protocol Reviewed/ Agreed with Student Documentation: N/A Therapist: Jose R Dubois [facility] Thank you once again for your referral.
== END | disposition home or self-care (01) ==
LOC: HO.PT 08-09 10:43
PROVIDERS: PCP Internal Medicine; Visit Provider Orthopaedic Surgery
DX: Z96.652 Presence of left artificial knee joint (principal)
CPT/HCPCS: 97110; 97112; 97140; 97162; 97530

== ENCOUNTER 2020-11-06 07:49 | Outpatient (REF) | payer MEDICARE, SELFPAY ==
--- NOTE | ~2020-11-06 | XR_ITS ---
EXAMINATION: XR AP STANDING VIEW OF BOTH KNEES AND LATERAL VIEW OF THE LEFT KNEE CLINICAL INFORMATION: Left knee pain. COMPARISON: 07/23/2020 and 05/02/2019. TECHNIQUE: AP standing view of both knees and lateral view of the left knee. FINDINGS: Patient is status post previous left knee arthroplasty. Prosthetic components appear in good position. There is a small left knee effusion. No acute fracture or dislocation is identified. Standing view of the right knee demonstrates severe medial joint space compartment narrowing with sclerosis and spurring. Chondrocalcinosis is present. XR/XR knee LT 2V IMPRESSION: No significant prosthetic or bony abnormality of the left knee identified. Small left knee effusion. Severe degenerative change medial joint space compartment of the right knee. Chondrocalcinosis.
--- NOTE | ~2020-11-06 | XR_ITS ---
EXAMINATION: XR AP STANDING VIEW OF BOTH KNEES AND LATERAL VIEW OF THE LEFT KNEE CLINICAL INFORMATION: Left knee pain. COMPARISON: 07/23/2020 and 05/02/2019. TECHNIQUE: AP standing view of both knees and lateral view of the left knee. FINDINGS: Patient is status post previous left knee arthroplasty. Prosthetic components appear in good position. There is a small left knee effusion. No acute fracture or dislocation is identified. Standing view of the right knee demonstrates severe medial joint space compartment narrowing with sclerosis and spurring. Chondrocalcinosis is present. XR/XR knee standing BI IMPRESSION: No significant prosthetic or bony abnormality of the left knee identified. Small left knee effusion. Severe degenerative change medial joint space compartment of the right knee. Chondrocalcinosis.
== END 2020-11-06 07:50 | disposition home or self-care (01) ==
LOC: HO.HOSX 07:49
PROVIDERS: Visit Provider Orthopaedic Surgery
DX: T84.84XA Pain due to internal orthopedic prosthetic devices, implants and grafts, initial encounter (principal); M25.561 Pain in right knee; Z96.652 Presence of left artificial knee joint
CPT/HCPCS: 73560; 73565; 99212